=== PATIENT | female | born 1940 | race African-American/Black ===

== ENCOUNTER 2021-03-18 03:06 | Inpatient (IN) ==
[2021-03-18 04:04] LABS: ABG Base Excess 0.9 MMOL/L (-2.5-2.5); ABG HCO3 25.2 MMOL/L (20-26); ABG Oxygen Saturation 96.8 % (95-100); ABG PH 7.385 (7.35-7.45); ABG PO2 92.7 MM HG (80-95); ABG TCO2 22.7 MMOL/L (23-27)
[2021-03-18 04:17] LABS: Hematocrit 42.4 VOL% (35.7-47.0); Hemoglobin 13.6 GM/DL (12.0-16.0); Immature Granulocytes % 0.4 %; Immature Granulocytes Absolute 0.02 #; Lymphocytes # 0.6 10*3/uL (1.4-4.0); Lymphocytes % 11.5 % (21.3-54.2); Mean Corpuscular HGB Conc 32.1 GM/DL (32-36); Mean Corpuscular Volume 90.2 FL (87-102); Mean Platelet Volume 10.5 FL (9.6-12.0); Monocytes % 6.9 % (1.7-12.7); Neutrophils % 81.2 % (38.7-73.9); Platelet Count 166 T/CUMM (130-400); Red Cell Distribution Width 13.8 % (9.3-17.3); White Blood Count 5.4 T/CUMM (4-12)
[2021-03-18 04:25] LABS: PT Patient Result 11.3 SECS (10.5-12.0); Partial Thromboplastin Time 34.8 SECS (23.8-32.1)
[2021-03-18] MEDS ORDERED: GLUCAGON 1 MG VIAL IM PRN (04:39)
[2021-03-18] MEDS ORDERED: ACETAMINOPHEN 325 MG TABLET PO PRN (04:39)
[2021-03-18] MEDS ORDERED: guaiFENesin/DM ER 600-30 MG TABLET PO PRN (04:39)
[2021-03-18] MEDS ORDERED: hydrALAZINE 20 MG/1 ML VIAL IV PRN (04:39)
[2021-03-18] MEDS ORDERED: ONDANSETRON 4 MG/2 ML VIAL IV PRN (04:39)
[2021-03-18 04:41] LABS: Bilirubin,Total 0.4 MG/DL (0.20-1.00); Calcium 8.5 MG/DL (8.5-10.1); Total Protein 7.1 G/DL (6.4-8.2)
[2021-03-18 04:47] LABS: Band Neutrophils 1 % (0-10); Hypochromia 1+; Lymphocytes 11 % (20-55); Segmented Neutrophils 83 % (50-85); Total Cells Counted 100
[2021-03-18 04:48] LABS: Microcytosis Slight; Platelet Estimate Adequate
[2021-03-18] MEDS ORDERED: DEXTROSE 10% 250 ML BAG IV PRN (04:49)
[2021-03-18] MEDS: methylPREDNISolone SOD SUC 40 MG/1 ML VIAL IV SCH ×2 (06:34→19:31)
[2021-03-18] MEDS: ENOXAPARIN 30 MG/0.3 ML SYRINGE SUBCUT SCH (06:34)
[2021-03-18 06:47] LABS: Risk Ratio 2.96; Thyroid Stimulating Hormone 0.822 uIU/ml (0.358-3.74); VLDL Cholesterol 25.8 MG/DL
[2021-03-18] MEDS ORDERED: IPRATROPIUM 500 MCG/2.5 ML NEB RESP TX SCH (07:00)
[2021-03-18] MEDS ORDERED: ALBUTEROL/IPRATROPIUM 3 ML NEB RESP TX SCH (07:00)
[2021-03-18] MEDS ORDERED: TIOTROPIUM 18 MCG INHALATION CAP 5/BOX INH SCH (09:00)
[2021-03-18] MEDS: PANTOPRAZOLE 40 MG TABLET PO SCH (10:55)
[2021-03-18] MEDS: DOCUSATE SODIUM 100 MG CAPSULE PO SCH ×2 (10:55→21:07)
[2021-03-19] MEDS: methylPREDNISolone SOD SUC 40 MG/1 ML VIAL IV SCH ×3 (05:40→20:21)
[2021-03-19] MEDS: ENOXAPARIN 30 MG/0.3 ML SYRINGE SUBCUT SCH (05:41)
[2021-03-19 05:50] LABS: Basophils % 0.1 % (0.0-0.8); Hematocrit 46.1 VOL% (35.7-47.0); Hemoglobin 14.6 GM/DL (12.0-16.0); Immature Granulocytes % 0.3 %; Immature Granulocytes Absolute 0.04 #; Lymphocytes # 0.5 10*3/uL (1.4-4.0); Lymphocytes % 4.6 % (21.3-54.2); Mean Corpuscular HGB Conc 31.7 GM/DL (32-36); Mean Corpuscular Volume 90.2 FL (87-102); Mean Platelet Volume 10.9 FL (9.6-12.0); Monocytes % 4.3 % (1.7-12.7); Neutrophils % 90.7 % (38.7-73.9); Platelet Count 173 T/CUMM (130-400); Red Blood Count 5.11 MC/CUMM (3.8-5.5); Red Cell Distribution Width 13.5 % (9.3-17.3); White Blood Count 11.6 T/CUMM (4-12)
[2021-03-19 06:12] LABS: Band Neutrophils 2 % (0-10); Calcium 9.3 MG/DL (8.5-10.1); Lymphocytes 2 % (20-55); Osmolality,Calculated 271.5 MOS/KG (273-304); Platelet Estimate Normal; Potassium 4.4 MMOL/L (3.5-5.1); Segmented Neutrophils 94 % (50-85); Total Cells Counted 100
[2021-03-19] MEDS: PANTOPRAZOLE 40 MG TABLET PO SCH (09:08)
[2021-03-19] MEDS: DOCUSATE SODIUM 100 MG CAPSULE PO SCH ×2 (09:08→20:18)
[2021-03-19] MEDS: SODIUM CHLORIDE 0.9% 1,000 ML IV SCH (16:05)
[2021-03-20] MEDS: methylPREDNISolone SOD SUC 40 MG/1 ML VIAL IV SCH ×3 (04:19→20:00)
[2021-03-20] MEDS: ENOXAPARIN 30 MG/0.3 ML SYRINGE SUBCUT SCH (05:46)
[2021-03-20] MEDS: SODIUM CHLORIDE 0.9% 1,000 ML IV SCH (05:48)
[2021-03-20] MEDS: DOCUSATE SODIUM 100 MG CAPSULE PO SCH ×2 (09:45→20:00)
[2021-03-20 10:13] LABS: Albumin 2.3 G/DL (3.4-5.0); Bilirubin,Total 0.4 MG/DL (0.20-1.00); Calcium 8.6 MG/DL (8.5-10.1); Potassium 4.6 MMOL/L (3.5-5.1); Total Protein 6.4 G/DL (6.4-8.2)
[2021-03-20] MEDS: PANTOPRAZOLE 40 MG TABLET PO SCH (14:54)
[2021-03-21 01:07] LABS: Bacteria,Urine Occasional /HPF (Few); Bilirubin,Urine Negative (Negative); Blood, Urine Large mg/dL (Negative); Glucose,Urine (UA) Negative (Negative); Hyaline Casts,Urine 1 /LPF (0-3); Ketones,Urine Negative (Negative); Mucus,Urine Occasional /LPF (Occasional); Nitrite,Urine Negative (Negative); Protein,Urine 100 MG/DL; RBC,Urine 2 /HPF (0-4); Squamous Epithelial Cell,Urine Occasional /HPF (0-10); Urine Appearance CLEAR (Clear); Urine Color Yellow (Yellow); Urine Specific Gravity 1.019 (1.001-1.035); Urine Urobilinogen < 2.0 EU/DL (<2.0)
[2021-03-21] MEDS: methylPREDNISolone SOD SUC 40 MG/1 ML VIAL IV SCH ×3 (04:38→22:39)
[2021-03-21] MEDS: ENOXAPARIN 30 MG/0.3 ML SYRINGE SUBCUT SCH (05:43)
[2021-03-21 05:53] LABS: Calcium 9.2 MG/DL (8.5-10.1); Osmolality,Calculated 276.2 MOS/KG (273-304); Potassium 4.3 MMOL/L (3.5-5.1)
[2021-03-21] MEDS: PANTOPRAZOLE 40 MG TABLET PO SCH (08:59)
[2021-03-21] MEDS: DOCUSATE SODIUM 100 MG CAPSULE PO SCH ×2 (08:59→22:40)
[2021-03-22] MEDS: methylPREDNISolone SOD SUC 40 MG/1 ML VIAL IV SCH (05:35)
[2021-03-22] MEDS: ENOXAPARIN 30 MG/0.3 ML SYRINGE SUBCUT SCH (05:38)
[2021-03-22] MEDS: PANTOPRAZOLE 40 MG TABLET PO SCH (08:34)
[2021-03-22] MEDS: DOCUSATE SODIUM 100 MG CAPSULE PO SCH ×2 (08:34→20:53)
[2021-03-22 20:37] VITALS: BP 132/93
[2021-03-23] MEDS ORDERED: predniSONE 20 MG TABLET PO SCH (09:00)
== END 2021-03-22 21:06 | disposition hospice, home (50) | DRG 180 ==
LOC: EDUNIT# → EDBD → N.ED 03:06 → SUATTDRO 04:38 → N.EDINP 04:38 → N.TELEN 05:30
PROVIDERS: ADMIT Internal Medicine; ATTEND Internal Medicine